=== PATIENT | female | born 1960 | race Caucasian/White ===

== ENCOUNTER → 2020-06-07 | Outpatient (CLI) | payer BC ==
[~2020-06-07] MED LIST: AZIT200SU PO; Amaryl1 MG; CEFD300 PO; COMPAZINE10 MG PO; CONEST.625 PO; GLIMEPIRIDE2 M2 PO; HYDCHL25; LEVSOD200 PO; LEVSOD25 PO; LOSARTAN POTASS25 M2 PO; MELO7.5 PO; Naltrexone HCl50 MG PO; Neurontin 300300 MG PO; ONDA4ODT MM; OXYACE5T PO; OXYASA5T PO; PROM25 PO; Protonix40 MG PO; SERT25 PO; ZOLOFT50 MG PO
[2020-06-07 17:31] LABS: BASOPHILS ABSOLUTE AUTO 0.06 K/mm3 (0.00-0.23); BASOPHILS PERCENT AUTO 1 % (0-2); EOSINOPHILS ABSOLUTE AUTO 0.18 K/mm3 (0.00-0.68); EOSINOPHILS PERCENT AUTO 2 % (0-6); Hematocrit 45.7 % (33.0-51.0); Hemoglobin 16.2 g/dL (11.5-16.0); IMMATURE GRAN ABSOLUTE AUTO 0.06 K/mm3 (0.00-0.10); IMMATURE GRAN PERCENT AUTO 1 % (0-1); LYMPHOCYTES ABSOLUTE AUTO 1.45 K/mm3 (0.84-5.20); LYMPHOCYTES PERCENT AUTO 17 % (21-46); MONOCYTES ABSOLUTE AUTO 0.67 K/mm3 (0.16-1.47); MONOCYTES PERCENT AUTO 8 % (4-13); Mean Corpuscular HGB 31.5 pg (26.0-34.0); Mean Corpuscular HGB Conc 35.4 g/dL (31.5-36.5); Mean Corpuscular Volume 89 fL (80-100); Mean Platelet Volume 8.3 fL (9.1-12.4); NEUTROPHILS PERCENT AUTO 71 % (41-73); Platelet Count 260 K/mm3 (150-400); RDW Coefficient Variation 13.4 % (11.7-14.2); RDW Standard Deviation 43.5 fL (35.1-46.3); Red Blood Cell Count 5.15 M/mm3 (3.80-5.20); White Blood Cell Count 8.32 K/mm3 (4.00-11.30)
[2020-06-07 17:49] LABS: Anion Gap 14 mmol/L (6-16); Blood Urea Nitrogen 17 mg/dL (8-24); Bun/Creatinine Ratio 14.7 (12.0-20.0); CO2, Blood 21 mmol/L (21-32); Calcium, Blood 9.6 mg/dL (8.5-10.1); Chloride, Blood 93 mmol/L (98-108); Creatinine, Blood 1.16 mg/dL (0.40-1.00); Glomerular Filtration Rate 48 (60-); Glucose, Blood 165 mg/dL (70-99); Sodium, Blood 128 mmol/L (136-145)
[2020-06-07 17:59] LABS: Troponin I <0.017 ng/mL (0.000-0.040)
== END | disposition home or self-care (01) ==
LOC: LAB EV 17:23 → LAB SHORT 17:23
PROVIDERS: Physician Assistant Surgical
DX: R07.81 Pleurodynia (principal); R53.83 Other fatigue; R79.89 Other specified abnormal findings of blood chemistry
CPT/HCPCS: 80048; 84439; 84443; 84481; 84484; 85025; 85379

== ENCOUNTER 2020-06-10 23:45 | Emergency (ER) | payer BC ==
[~2020-06-10] VITALS: Ht 165.1 cm; Wt 95.2 kg
[~2020-06-10 23:45] MED LIST changes: -AZIT200SU PO; -Amaryl1 MG; -CEFD300 PO; -COMPAZINE10 MG PO; -GLIMEPIRIDE2 M2 PO; -HYDCHL25; -LOSARTAN POTASS25 M2 PO; -MELO7.5 PO; -Naltrexone HCl50 MG PO; -Neurontin 300300 MG PO; -ONDA4ODT MM; -Protonix40 MG PO; -ZOLOFT50 MG PO
[2020-06-11] MEDS ORDERED: Protonix40 MG PO (00:25)
[2020-06-11 00:35] LABS: BASOPHILS ABSOLUTE AUTO 0.05 K/mm3 (0.00-0.23); BASOPHILS PERCENT AUTO 1 % (0-2); EOSINOPHILS ABSOLUTE AUTO 0.03 K/mm3 (0.00-0.68); EOSINOPHILS PERCENT AUTO 0 % (0-6); Hematocrit 45.6 % (33.0-51.0); Hemoglobin 15.6 g/dL (11.5-16.0); IMMATURE GRAN ABSOLUTE AUTO 0.04 K/mm3 (0.00-0.10); IMMATURE GRAN PERCENT AUTO 0 % (0-1); LYMPHOCYTES ABSOLUTE AUTO 0.95 K/mm3 (0.84-5.20); LYMPHOCYTES PERCENT AUTO 10 % (21-46); MONOCYTES ABSOLUTE AUTO 0.74 K/mm3 (0.16-1.47); MONOCYTES PERCENT AUTO 8 % (4-13); Mean Corpuscular HGB 30.5 pg (26.0-34.0); Mean Corpuscular HGB Conc 34.2 g/dL (31.5-36.5); Mean Corpuscular Volume 89 fL (80-100); Mean Platelet Volume 8.3 fL (9.1-12.4); NEUTROPHILS PERCENT AUTO 81 % (41-73); Platelet Count 252 K/mm3 (150-400); RDW Coefficient Variation 13.2 % (11.7-14.2); RDW Standard Deviation 43.6 fL (35.1-46.3); Red Blood Cell Count 5.12 M/mm3 (3.80-5.20); White Blood Cell Count 9.21 K/mm3 (4.00-11.30)
[2020-06-11 00:48] LABS: Alanine Aminotransfer (ALT/SGP 70 U/L (12-78); Albumin, Blood 4.3 g/dL (3.4-5.0); Alk Phos 81 U/L (50-136); Anion Gap 11 mmol/L (6-16); Aspartate Aminotrans (AST/SGOT 118 U/L (12-37); Blood Urea Nitrogen 14 mg/dL (8-24); CO2, Blood 20 mmol/L (21-32); Calcium, Blood 9.3 mg/dL (8.5-10.1); Chloride, Blood 99 mmol/L (98-108); Creatinine, Blood 0.78 mg/dL (0.40-1.00); Globulin, Blood 4.2 g/dL (2.2-4.0); Glomerular Filtration Rate >60 (60-); Glucose, Blood 180 mg/dL (70-99); Magnesium, Blood 1.9 mg/dL (1.6-2.4); Sodium, Blood 130 mmol/L (136-145); Total Protein, Blood 8.5 g/dL (6.4-8.2)
[2020-06-11] MEDS ORDERED: Amaryl1 MG (01:23)
[2020-06-11] MEDS ORDERED: AZIT200SU PO (01:23)
[2020-06-11] MEDS ORDERED: CEFD300 PO (01:23)
[2020-06-11 01:58] LABS: Influenza A, PCR Negative (NEGATIVE); Influenza B, PCR Negative (NEGATIVE); Resp Syncytial Virus, PCR Negative (NEGATIVE); SARS-Cov-2 (COVID-19) PCR, MMC Negative (NEGATIVE)
[2020-06-11 02:10] LABS: Source, Urine Clean Catch
[2020-06-11 02:12] LABS: Appearance, Urine Clear (Clear); Bilirubin, Urine Neg (Neg); Blood, Urine Neg (Neg); Color, Urine Yellow (P-Yellow); Glucose Qualitative, Urine 1+ (Neg); Ketones, Urine 2+ (Neg); Leukocyte Esterase, Urine Neg (Neg); Nitrite, Urine Neg (Neg); Protein, Urine Neg (Neg); Specific Gravity, Urine 1.015 (1.003-1.022); Urobilinogen, Urine NORM (Normal)
[2020-06-11] MEDS ORDERED: COMPAZINE10 MG PO (02:57)
== END 2020-06-11 03:30 | disposition home or self-care (01) ==
LOC: ER 23:45
PROVIDERS: Emergency Medicine
DX: B34.9 Viral infection, unspecified (principal); E86.0 Dehydration; Z79.84 Long term (current) use of oral hypoglycemic drugs; Z79.899 Other long term (current) drug therapy; Z88.5 Allergy status to narcotic agent; Z20.822 Contact with and (suspected) exposure to COVID-19
CPT/HCPCS: 0241U; 36415; 71045; 80053; 81003; 83735; 83880; 85025; 93005; 93010; 96374; 96375; 99284; J0780; J2405; J2765; J7030

== ENCOUNTER 2020-09-21 13:47 | Emergency (ER) | payer BC ==
[~2020-09-21] VITALS: Ht 165.1 cm; Wt 93.0 kg
[~2020-09-21 13:47] MED LIST changes: +AZIT200SU PO; +Amaryl1 MG; +CEFD300 PO; +COMPAZINE10 MG PO; +Protonix40 MG PO
[2020-09-21 14:28] LABS: BASOPHILS ABSOLUTE AUTO 0.07 K/mm3 (0.00-0.23); BASOPHILS PERCENT AUTO 1 % (0-2); EOSINOPHILS ABSOLUTE AUTO 0.09 K/mm3 (0.00-0.68); EOSINOPHILS PERCENT AUTO 1 % (0-6); Hematocrit 49.6 % (33.0-51.0); Hemoglobin 17.3 g/dL (11.5-16.0); IMMATURE GRAN ABSOLUTE AUTO 0.04 K/mm3 (0.00-0.10); IMMATURE GRAN PERCENT AUTO 1 % (0-1); LYMPHOCYTES ABSOLUTE AUTO 1.33 K/mm3 (0.84-5.20); LYMPHOCYTES PERCENT AUTO 18 % (21-46); MONOCYTES ABSOLUTE AUTO 0.58 K/mm3 (0.16-1.47); MONOCYTES PERCENT AUTO 8 % (4-13); Mean Corpuscular HGB 31.8 pg (26.0-34.0); Mean Corpuscular HGB Conc 34.9 g/dL (31.5-36.5); Mean Corpuscular Volume 91 fL (80-100); Mean Platelet Volume 8.5 fL (9.1-12.4); NEUTROPHILS ABSOLUTE AUTO 5.47 K/mm3 (1.96-9.15); NEUTROPHILS PERCENT AUTO 72 % (41-73); Platelet Count 263 K/mm3 (150-400); RDW Coefficient Variation 13.1 % (11.7-14.2); RDW Standard Deviation 43.9 fL (35.1-46.3); Red Blood Cell Count 5.44 M/mm3 (3.80-5.20); White Blood Cell Count 7.58 K/mm3 (4.00-11.30)
[2020-09-21] MEDS ORDERED: GLIMEPIRIDE2 M2 PO (14:36)
[2020-09-21] MEDS ORDERED: ZOLOFT50 MG PO (14:36)
[2020-09-21] MEDS ORDERED: LOSARTAN POTASS25 M2 PO (14:36)
[2020-09-21] MEDS ORDERED: MELO7.5 PO (14:36)
[2020-09-21] MEDS ORDERED: HYDCHL25 (14:36)
[2020-09-21 14:45] LABS: Alanine Aminotransfer (ALT/SGP 54 U/L (12-78); Albumin, Blood 3.8 g/dL (3.4-5.0); Albumin/Globulin Ratio 0.8 (0.8-1.8); Alk Phos 85 U/L (50-136); Anion Gap 10 mmol/L (6-16); Aspartate Aminotrans (AST/SGOT 102 U/L (12-37); Bilirubin, Total 1.5 mg/dL (0.1-1.0); Blood Urea Nitrogen 12 mg/dL (8-24); CO2, Blood 23 mmol/L (21-32); Chloride, Blood 95 mmol/L (98-108); Creatinine, Blood 0.92 mg/dL (0.40-1.00); Globulin, Blood 4.6 g/dL (2.2-4.0); Glomerular Filtration Rate >60 (60-); Glucose, Blood 200 mg/dL (70-99); Potassium, Blood 3.8 mmol/L (3.5-5.5); Sodium, Blood 128 mmol/L (136-145); Total Protein, Blood 8.4 g/dL (6.4-8.2)
[2020-09-21 16:27] LABS: Source, Urine Clean Catch
[2020-09-21 16:46] LABS: Bilirubin, Urine Neg (Neg); Blood, Urine Neg (Neg); Glucose Qualitative, Urine Neg (Neg); Ketones, Urine Neg (Neg); Leukocyte Esterase, Urine 1+ (Neg); Nitrite, Urine Neg (Neg); Protein, Urine Neg (Neg); Urobilinogen, Urine NORM (Normal)
[2020-09-21 17:09] LABS: Appearance, Urine Hazy (Clear); Color, Urine Yellow (P-Yellow)
[2020-09-21 17:10] LABS: Bacteria Mod /hpf; Red Blood Cells, Urine 0-2 /hpf (0-2); Squamous Epithelial Cells Few /hpf (Few); White Blood Cells, Urine 0-2 /hpf (0-5)
[2020-09-21] MEDS ORDERED: ONDA4ODT MM ×2 (17:32→17:49)
[2020-09-21] MEDS ORDERED: Neurontin 300300 MG PO (17:32)
[2020-09-21] MEDS ORDERED: Naltrexone HCl50 MG PO ×2 (17:32→17:49)
== END 2020-09-21 17:54 | disposition home or self-care (01) ==
LOC: ER 13:47
PROVIDERS: Emergency Medicine; Physician Assistant
DX: F10.139 Alcohol abuse with withdrawal, unspecified (principal); Z79.84 Long term (current) use of oral hypoglycemic drugs; Z79.899 Other long term (current) drug therapy; Z88.0 Allergy status to penicillin; Z88.5 Allergy status to narcotic agent
CPT/HCPCS: 36415; 80053; 81001; 85025; 87077; 87086; 87186; 96374; 99284-25; A9270; J1885; J7030

== ENCOUNTER 2022-10-30 19:32 | Emergency (ER) | payer BC ==
[~2022-10-30] VITALS: Ht 165.1 cm; Wt 85.7 kg
[~2022-10-30 19:32] MED LIST changes: +GLIMEPIRIDE2 M2 PO; +HYDCHL25; +LOSARTAN POTASS25 M2 PO; +MELO7.5 PO; +Naltrexone HCl50 MG PO; +Neurontin 300300 MG PO; +ONDA4ODT MM; +ZOLOFT50 MG PO
[2022-10-30 20:11] LABS: BASOPHILS ABSOLUTE AUTO 0.05 K/mm3 (0.00-0.23); BASOPHILS PERCENT AUTO 1 % (0-2); EOSINOPHILS ABSOLUTE AUTO 0.13 K/mm3 (0.00-0.68); EOSINOPHILS PERCENT AUTO 1 % (0-6); Hemoglobin 14.2 g/dL (11.5-16.0); IMMATURE GRAN ABSOLUTE AUTO 0.08 K/mm3 (0.00-0.10); IMMATURE GRAN PERCENT AUTO 1 % (0-1); LYMPHOCYTES PERCENT AUTO 20 % (21-46); MONOCYTES ABSOLUTE AUTO 1.09 K/mm3 (0.16-1.47); MONOCYTES PERCENT AUTO 10 % (4-13); Mean Corpuscular HGB Conc 34.6 g/dL (31.5-36.5); Mean Corpuscular Volume 87 fL (80-100); Mean Platelet Volume 9.6 fL (9.1-12.4); NEUTROPHILS ABSOLUTE AUTO 7.45 K/mm3 (1.96-9.15); NEUTROPHILS PERCENT AUTO 68 % (41-73); Platelet Count 344 K/mm3 (150-400); RDW Coefficient Variation 13.8 % (11.7-14.2); RDW Standard Deviation 44.3 fL (35.1-46.3); Red Blood Cell Count 4.74 M/mm3 (3.80-5.20)
[2022-10-30 20:36] LABS: Albumin, Blood 3.7 g/dL (3.4-5.0); Albumin/Globulin Ratio 1.1 (0.8-1.8); Bilirubin, Total 0.7 mg/dL (0.1-1.0); Bun/Creatinine Ratio 18.5 (12.0-20.0); Calcium, Blood 9.3 mg/dL (8.5-10.1); Creatinine, Blood 1.46 mg/dL (0.40-1.00); Globulin, Blood 3.5 g/dL (2.2-4.0); Potassium, Blood 3.4 mmol/L (3.5-5.5); Total Protein, Blood 7.2 g/dL (6.4-8.2)
[2022-10-30 20:44] LABS: Magnesium, Blood 1.9 mg/dL (1.6-2.4)
[2022-10-30 21:27] LABS: Thyroid Stimulating Hormone 0.018 uIU/mL (0.360-4.800)
[2022-10-30 22:20] LABS: Source, Urine Clean Catch
[2022-10-30 22:22] LABS: Bilirubin, Urine Neg (Neg); Blood, Urine Neg (Neg); Glucose Qualitative, Urine Neg (Neg); Ketones, Urine Neg (Neg); Leukocyte Esterase, Urine 1+ (Neg); Nitrite, Urine Neg (Neg); Protein, Urine 1+ (Neg); Specific Gravity, Urine 1.015 (1.003-1.022); Urobilinogen, Urine NORM (Normal)
[2022-10-30 22:26] LABS: Appearance, Urine Clear (Clear); Color, Urine Yellow (P-Yellow)
[2022-10-30 22:44] LABS: Amorphous Light (0-Heavy); Bacteria Few /hpf; Hyaline Casts 25-50 /lpf (0-2); Mucus Light (0-Heavy); Red Blood Cells, Urine Not Seen /hpf (0-2); Squamous Epithelial Cells Few /hpf (Few); White Blood Cells, Urine 0-2 /hpf (0-5)
[2022-10-30 23:03] LABS: Free Thyroxine 1.74 ng/dL (0.70-1.60)
[2022-10-31 00:41] VITALS: BP 122/61
== END 2022-10-31 00:30 | disposition home or self-care (01) ==
LOC: ER 19:32
PROVIDERS: Emergency Medicine
DX: N17.9 Acute kidney failure, unspecified (principal); R51.9 Headache, unspecified; E03.9 Hypothyroidism, unspecified; Z88.0 Allergy status to penicillin; Z88.5 Allergy status to narcotic agent; Z79.899 Other long term (current) drug therapy
CPT/HCPCS: 70450; 80053; 81001; 83735; 84439; 84443; 84484; 85025; 93005; 93010; 96361; 96374; 99284-25; A9270; J1885; J7030

== ENCOUNTER 2023-12-07 13:29 | Emergency (ER) | payer BC ==
[~2023-12-07] VITALS: Ht 165.1 cm; Wt 101.2 kg
[2023-12-07 15:44] VITALS: BP 157/88
[2023-12-07] MEDS ORDERED: PRED5 PO (15:44)
[2023-12-07] MEDS ORDERED: SULF500 PO (15:44)
[2023-12-07] MEDS ORDERED: PROM25 PO (17:19)
[2023-12-07] MEDS ORDERED: CHLO25 PO (17:19)
== END 2023-12-07 17:32 | disposition home or self-care (01) ==
LOC: ER 13:29
DX: F10.939 Alcohol use, unspecified with withdrawal, unspecified (principal); F17.200 Nicotine dependence, unspecified, uncomplicated; Z88.0 Allergy status to penicillin; Z88.5 Allergy status to narcotic agent; Z79.52 Long term (current) use of systemic steroids; Z79.899 Other long term (current) drug therapy
CPT/HCPCS: 99284

== ENCOUNTER 2024-06-11 18:06 | Emergency (ER) | payer BC ==
[~2024-06-11] VITALS: Ht 167.6 cm; Wt 90.7 kg
[~2024-06-11 18:06] MED LIST changes: +CHLO25 PO; +PRED5 PO; +SULF500 PO
[2024-06-11] MEDS ORDERED: NS 1,000 ML IV SCH ×2 (18:50→20:45)
[2024-06-11] MEDS ORDERED: Ondansetron HCl 2 MG / ML 2ML Vial IV ONE ×2 (18:50→20:45)
[2024-06-11 19:30] LABS: BASOPHILS ABSOLUTE AUTO 0.03 K/mm3 (0.00-0.23); BASOPHILS PERCENT AUTO 0 % (0-2); EOSINOPHILS ABSOLUTE AUTO 0.03 K/mm3 (0.00-0.68); EOSINOPHILS PERCENT AUTO 0 % (0-6); Hematocrit 45.8 % (33.0-51.0); Hemoglobin 16.2 g/dL (11.5-16.0); IMMATURE GRAN ABSOLUTE AUTO 0.03 K/mm3 (0.00-0.10); IMMATURE GRAN PERCENT AUTO 0 % (0-1); LYMPHOCYTES ABSOLUTE AUTO 1.33 K/mm3 (0.84-5.20); LYMPHOCYTES PERCENT AUTO 18 % (21-46); MONOCYTES ABSOLUTE AUTO 0.53 K/mm3 (0.16-1.47); MONOCYTES PERCENT AUTO 7 % (4-13); Mean Corpuscular HGB 32.7 pg (26.0-34.0); Mean Corpuscular HGB Conc 35.4 g/dL (31.5-36.5); Mean Corpuscular Volume 93 fL (80-100); Mean Platelet Volume 8.2 fL (9.1-12.4); NEUTROPHILS ABSOLUTE AUTO 5.41 K/mm3 (1.96-9.15); NEUTROPHILS PERCENT AUTO 74 % (41-73); Platelet Count 295 K/mm3 (150-400); RDW Coefficient Variation 15.9 % (11.7-14.2); RDW Standard Deviation 54.1 fL (35.1-46.3); Red Blood Cell Count 4.95 M/mm3 (3.80-5.20); White Blood Cell Count 7.36 K/mm3 (4.00-11.30)
[2024-06-11 19:49] LABS: Alanine Aminotransfer (ALT/SGP 18 U/L (12-78); Albumin, Blood 4.2 g/dL (3.4-5.0); Alk Phos 78 U/L (50-136); Anion Gap 13 mmol/L (3-11); Aspartate Aminotrans (AST/SGOT 28 U/L (12-37); Bilirubin, Total 0.7 mg/dL (0.1-1.0); Blood Urea Nitrogen 26 mg/dL (8-24); Bun/Creatinine Ratio 30.4 (12.0-20.0); CO2, Blood 19 mmol/L (21-32); Calcium, Blood 9.6 mg/dL (8.5-10.1); Chloride, Blood 106 mmol/L (98-108); Creatinine, Blood 0.85 mg/dL (0.40-1.00); Glomerular Filtration Rate 77 (60-); Glucose, Blood 115 mg/dL (70-99); Potassium, Blood 3.4 mmol/L (3.5-5.5); Sodium, Blood 135 mmol/L (136-145); Total Protein, Blood 8.2 g/dL (6.4-8.2)
[2024-06-11] MEDS ORDERED: Thiamine HCl 100 MG Tab PO ONE (20:45)
[2024-06-11] MEDS ORDERED: Folic Acid 1 MG TAB PO ONE (20:45)
[2024-06-11 21:01] LABS: Ethanol (Alcohol), Blood, Med <3 mg/dL
[2024-06-11] MEDS ORDERED: Folic Acid 1 MG in NS 50 ML IV ONE (21:20)
[2024-06-11] MEDS ORDERED: Thiamine HCl 100 MG in NS 50 ML IV ONE (21:20)
[2024-06-11 21:54] LABS: Influenza A, PCR NEGATIVE (NEGATIVE); Influenza B, PCR NEGATIVE (NEGATIVE); Resp Syncytial Virus, PCR NEGATIVE (NEGATIVE); SARS-Cov-2 (COVID-19) PCR, MMC NEGATIVE (NEGATIVE)
[2024-06-11] MEDS ORDERED: LORazepam 2 MG/ML 1ML Injection IV ONE (21:55)
[2024-06-11] MEDS ORDERED: ONDA4 PO (22:54)
[2024-06-11 23:00] VITALS: BP 181/94
== END 2024-06-11 23:21 | disposition home or self-care (01) ==
LOC: ER 18:06
PROVIDERS: Emergency Medicine; Physician Assistant
DX: K52.9 Noninfective gastroenteritis and colitis, unspecified (principal); R11.2 Nausea with vomiting, unspecified; Z79.899 Other long term (current) drug therapy; Z79.52 Long term (current) use of systemic steroids; Z79.890 Hormone replacement therapy; Z88.0 Allergy status to penicillin; Z88.5 Allergy status to narcotic agent; Z11.52 Encounter for screening for COVID-19
CPT/HCPCS: 0241U; 74177; 80053; 80320; 83690; 85025; 96361; 96365-59; 96367; 96375; 96376; 99285-25; A9270; J2060; J2405; J3411; J7030; Q9967